=== PATIENT | female | born 1935 | race Caucasian/White ===

== ENCOUNTER 2023-02-03 13:40 | Emergency (ER) | payer MEDICARE, SELFPAY ==
[2023-02-03 13:44] VITALS: BP 147/91; PULSE 121; RESP 16; TEMP 37.3; O2SAT 94; BMI 23.2
--- NOTE | 2023-02-03 14:05 | ED.GENADULT ---
HPI - General Adult General Chief complaint: Cough Stated complaint: Congestion, cough Time Seen by Provider: 02/03/23 14:03 History of Present Illness HPI narrative: Pt c/o cough, congestion, and burning in throat that started four days ago. Pt states similar episode in 1987 . Recently around son who was sick and put on antibiotics. Pt states she has a clip on her heart and afib, so I'm here because I need the antibiotic augmentin. Pt states she recently got RSV vaccine 87-year-old woman presenting to emergency department complaint of cough. She mentions sinus problems but does not have any facial pain currently. No fever. No ear pain. Not really with sore throat. No rash. Not short of breath outside of coughing. Has not tried any treatment. Apparently was screened 2 days ago negative for COVID. She is clearly disinterested in being checked again. Was initially described as Augmentin it sounds like is actually amoxicillin. She says she is around a son who was sick with what sounds like head cold symptoms as she describes it and started on antibiotics; I'm understanding that this was amoxicillin. She describes history of cough like this before and says she needs this antibiotic to get over it. Unprompted proceeds to talk about how she does not think that antibiotic resistance is related to antibiotic prescriptions; insignificant to the affect of climate change in this regard she says. She alludes to numerous studies. I ask for more clarity and direction to them and she becomes angry. Becomes further angry as I tried to explain my thoughts on the matter. 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 Anticoagulated with Coumadin and lists a number of allergies. Related Data Home Medications Medication Instructions Recorded Confirmed ketoconazole 2 % topical cream 1 applic topical .Daily as needed 10/06/21 02/03/23 PRN multivitamin (Multiple Vitamins 1 tab PO QAM 10/06/21 02/03/23 tablet) metoprolol succinate 200 mg 50 mg PO BID 06/28/22 02/03/23 tablet,extended release 24 hr Previous Rx's Medication Instructions Recorded conjugated estrogens 0.625 mg/gram 0.3125 mg vaginal 2XW #30 grams 12/06/21 vaginal cream furosemide 20 mg tablet 40 mg (2 x 20 mg) PO DAILY #180 06/24/22 tabs ammonium lactate 12 % topical cream 1 applic topical QDAY Acne #1,155 08/31/22 grams warfarin 1 mg tablet 4 mg PO DAILY Atrial fibrillation 08/31/22 #90 tabs losartan 100 mg tablet 100 mg PO DAILY Hypertension #90 01/09/23 tabs tretinoin 0.025 % topical cream 1 applic topical .Bedtime Acne #45 02/01/23 grams guaifenesin 600 mg tablet, 600 mg PO BID #30 tabs 02/02/23 extended release 12 hr amoxicillin 875 mg tablet 875 mg PO BID 7 days #14 tabs 02/03/23 Allergies Allergy/AdvReac Type Severity Reaction Status Date / Time cephalexin Allergy Intermediate Hives/rash Verified 02/03/23 13:55 nitrofurantoin Allergy Mild Unknown Verified 02/03/23 13:55 Sulfa (Sulfonamide Allergy Mild Rash Verified 02/03/23 13:55 Antibiotics) spironolactone Allergy Unknown Rash, Verified 02/03/23 13:55 blisters amlodipine AdvReac Mild Leg Verified 02/03/23 13:55 swelling clonidine AdvReac Mild Unknown Verified 02/03/23 13:55 hydrochlorothiazide AdvReac Mild Unknown Verified 02/03/23 13:55 lisinopril AdvReac Mild Hugo Verified 02/03/23 13:55 inhibitor cough Triamterene AdvReac Mild Unknown Uncoded 02/02/23 13:52 Review of Systems Status of ROS: Reports: 6 or more systems reviewed and unremarkable except as noted in History and below [facility] Medical History Post-menopausal bleeding ?N95.0 - Postmenopausal bleeding (ICD-10) History of squamous cell carcinoma of skin (2016) ?Z85.828 - Personal history of other malignant neoplasm of skin (ICD-10) Surgical History Status post eye surgery (~2020) ?Z98.890 - Other specified postprocedural states (ICD-10) H/O cardiac radiofrequency ablation ?Z98.890 - Other specified postprocedural states (ICD-10) Status post laser ablation of incompetent vein (~2016) ?Z98.890 - Other specified postprocedural states (ICD-10) History of tricuspid valve repair (2019) ?Z98.890 - Other specified postprocedural states (ICD-10) History of tonsillectomy (1953) ?Z90.89 - Acquired absence of other organs (ICD-10) Family History Father Brain tumor 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 Sounds mildly congested nasopharynx. Breathing easily. Rare small cough. Oropharynx is moist non erythematous. Trace cobblestoning or irritation in the posterior oropharynx. Neck is supple without lymphadenopathy. No facial swelling erythema tenderness. TMs are clear. Lungs are clear. Heart with trace systolic murmur. Skin is warm and dry. Const: Vital Signs, click to edit/add: Vital Signs - 24 hr 02/03/23 13:44 Temperature 99.2 F Pulse Rate [Pulse Oximeter] 121 H Respiratory Rate 16 Blood Pressure [Le ft Upper Arm] 147/91 H Pulse Oximetry 94 Oxygen Delivery Me thod Room Air Documenting provider has reviewed patient's vital signs: yes Course Vital Signs Vital signs: Initial Vital Signs Temperature 99.2 F 02/03/23 13:44 Temperature Source Temporal Artery Scan 02/03/23 13:44 Pulse Rate 121 H 02/03/23 13:44 Respiratory Rate 16 02/03/23 13:44 Blood Pressure 147/91 H 02/03/23 13:44 Blood Pressure Mean 109 H 02/03/23 13:44 Blood Pressure Position Sitting 02/03/23 13:44 Pulse Oximetry 94 02/03/23 13:44 Oxygen Delivery Method Room Air 02/03/23 13:44 Vital Signs Temperature 99.2 F 02/03/23 13:44 Pulse Rate 121 H 02/03/23 13:44 Respiratory Rate 16 02/03/23 13:44 Blood Pressure 147/91 H 02/03/23 13:44 Pulse Oximetry 94 02/03/23 13:44 Oxygen Delivery Method Room Air 02/03/23 13:44 Temperature 99.2 F 02/03/23 13:44 Pulse Rate 121 H 02/03/23 13:44 Respiratory Rate 16 02/03/23 13:44 Blood Pressure 147/91 H 02/03/23 13:44 Pulse Oximetry 94 02/03/23 13:44 Oxygen Delivery Method Room Air 02/03/23 13:44 Medical Decision Making MDM Narrative Medical decision making narrative: See above. After calming does allow for physical exam. Appears to have a head cold and likely some postnasal drip causing cough. She agrees that unlikely to have a pneumonia at this time. Demands again whether not she will be receiving her antibiotics. It appears I am unable to discuss this matter further. Pseudoephedrine might be less indicated given history of atrial fibrillation. I do encourage some [id number] remedies prior to initiating antibiotics; encouraging her to wait with starting these. Clearly no sinus infection so would prescribe a shorter course. See patient discharge plan Medical Records Medical records reviewed: Yes I reviewed the patient's medical records Discharge Plan Discharge Clinical Impression: Head cold, URI (upper respiratory infection) Patient Disposition: Home, Self-Care Condition: Stable Instructions: Cold Symptoms (ED) Additional Instructions: Stay well-hydrated. Consider sleeping under the mist of a cool mist humidifier. Menthol vapors might be helpful. If you tolerate decongestants, pseudoephedrine could be quite helpful. Concern though is that it could raise your heart rate. Could try a mucolytic like guaifenesin. If not improving in 2-3 days, then amoxicillin could be the way to go. Activity Level: No Restrictions Discharge Diet: Regular Prescriptions: New amoxicillin 875 mg tablet 875 mg PO BID 7 Days Qty: 14 0RF No Action guaifenesin 600 mg tablet extended release 12hr 600 mg PO BID Qty: 30 0RF ketoconazole 2 % cream 1 applic topical .Daily as needed PRN multivitamin [Multiple Vitamins] Tablet 1 tab PO QAM metoprolol succinate 200 mg tablet extended release 24 hr 50 mg PO BID conjugated estrogens 0.625 mg/gram cream 0.3125 mg vaginal 2XW Qty: 30 2RF furosemide 20 mg tablet 40 mg PO DAILY Qty: 180 0RF ammonium lactate 12 % cream 1 applic topical QDAY Qty: 1155 2RF warfarin 1 mg tablet 4 mg PO DAILY Qty: 90 3RF Protocol: Dose Management Condition: Monday Dose/Route: 3.5 mg Instruction: 3.5 x 1 mg tablets Condition: Monday Dose/Route: 3.5 mg Instruction: 3.5 x 1 mg tablets Condition: Monday Dose/Route: 3.5 mg Instruction: 3.5 x 1 mg tablets Condition: Monday Dose/Route: 3.5 mg Instruction: 3.5 x 1 mg tablets Condition: Dose/Route: 3.5 mg Instruction: 3.5 x 1 mg tablets Condition: Monday Dose/Route: 3.5 mg Instruction: 3.5 x 1 mg tablets Condition: Monday Dose/Route: 3.5 mg Instruction: 3.5 x 1 mg tablets Protocol Text: Adjustment Start Date: Monday12/20/22 INR Value: 2.5 INR Date: 12/20/22 Recheck Date: 02/18/23 Rx Instructions: Neil 4 MG, M 4 MG, Tu 4 MG, W 4 MG, Th 4 MG, F 4 MG, Sa 4 MG losartan 100 mg tablet 100 mg PO DAILY Qty: 90 3RF tretinoin 0.025 % cream 1 applic topical .Bedtime Qty: 45 3RF Follow Up/Referrals: Sandip Monteiro MD [Primary Care Provider] - Stand Alone Forms: [employer] Info Instructions
== END 2023-02-03 14:53 | disposition home or self-care (01) ==
PROVIDERS: Emergency Provider Family Medicine; PCP Internal Medicine
DX: J06.9 Acute upper respiratory infection, unspecified (principal)
CPT/HCPCS: 99283; 99284

== ENCOUNTER 2023-08-07 09:14 | Outpatient (CLI) | payer MEDICARE, SELFPAY ==
--- OUTSIDE RECORDS SUMMARY | 2023-08-09 07:23 | XMS_ITS ---
Author Name Unknown Organization [facility] Address [address] [place] [address] Care Team Providers Care Braid Cutter Name Role Phone Wong Marrero M.D., Ph.D. 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 Past Plans Radiation Treatments * No radiation treatments are documented for this patient in [facility]. Treatments may have been administered in another system. Resolved Problems Problem Noted Date Diagnosed Date Resolved Date Imbalance Non Orthopedic 07/26/2022 Cataract Senile Nuclear Sclerosis Bilateral 12/02/2020 03/23/2021 Overview: Added automatically from request for surgery [id number] Cataract Senile Cortical Right 12/02/2020 02/05/2021 Overview: Added automatically from request for surgery [id number] Cataract Senile Cortical Left 12/02/2020 03/23/2021 Overview: Added automatically from request for surgery [id number] Encounter For Removal Of Sutures 01/15/2020 03/13/2020 Lesion Skin 12/24/2019 01/15/2020 Anemia Iron Deficiency 09/13/201802/21 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
--- OUTSIDE RECORDS SUMMARY | 2023-08-09 07:23 | XMS_ITS | Referral Summary ---
Author Name Unknown Organization [facility] Address [address] [place] [id number] Care Team Providers Care Lug Loader Name Role Phone Wong Marrero M.D., Ph.D. Primary Care Provider Source Comments Patient records contain information from all sites at [facility]. For routine questions regarding patient records, call [phone] during business hours, M-F 8:00 AM - 5:00 PM Central Time. Record requests for emergency care only can be directed to [phone] Encounters Date Type Department Care Team Description 07/04/2023 Clinical Communication Department of Orthopedic Surgery in [address] [phone] Barry Baeza M.D. Surgical Listing (ORTHO ) 07/04/2023 Clinical Communication Department of Orthopedic Surgery in [address] [phone] Barry Baeza M.D. Surgical Listing 07/04/2023 1:13 PM CDT - 07/04/2023 11:59 PM CDT Hospital Encounter Department of Radiology in [address] [phone] Barry Baeza M.D. Pain Finger Left Discharge Disposition: Home or Self Care 07/04/2023 1:30 PM CDT Comprehensive Visit Department of Orthopedic Surgery in [address] [phone] Barry Baeza M.D. Pain Finger Left (Primary Dx) Discharge Disposition: Home or Self Care 06/06/2023 Orders Only [facility] PCP TH MNT Wong Marrero M.D., Ph.D. 05/22/2023 4:00 PM BENDING PRESS OPERATOR Office Visit Department of Family Medicine, [facility], in [address] [phone] Wong Marrero M.D., Ph.D. Pain Hip Left (Primary Dx) Discharge Disposition: Home or Self Care from Last 3 Months Allergies Active Allergy Reactions Criticality Noted Date Comments Cephalexin Rash,Other (see comments) Low 04/08/2015 hives Spironolactone Rash High 10/15/2018 Sulfa (Sulfonamide Antibiotics) Hives (Reselect Reaction) Low 04/08/2015 rash Medications Medication Sig Dispensed Refills Start Date End Date Status losartan (COZAAR) 100 mg tablet Take 100 mg by mouth daily. 08/19/2017 Active ammonium lactate (AMLACTIN) 12 % cream as needed. 08/07/2017 Active acetaminophen (TYLENOL) 500 mg tablet Take 1,000 mg by mouth as needed. Active tretinoin (RETIN-A) 0.025 % cream as needed. 09/24/2019 Active amoxicillin (AMOXIL) 500 mg capsule Take 4 caps (2000 mg) 1 hour prior to procedure. 12 capsule 3 03/03/2020 Active Additional Information Patient taking differently: As needed, Take 4 caps (2000 mg) 1 hour prior to procedure., Reported on 05/07/2021 metoprolol succinate (TOPROL-XL) 50 mg 24 hr tablet Take 2 tablets (100 mg total) by mouth 2 (two) times a day. Do not crush or chew. 360 tablet 11 02/21/2022 Active Additional Information Patient taking differently: 50 mgoral 2 times daily, Do not crush or chew., Reported on 08/18/2022 furosemide (LASIX) 20 mg tabletIndications:A trial Fibrillation Unspecified (HCC) Take 2 tablets (40 mg total) by mouth daily. Patient takes one dose of 40mg/day 180 tablet 3 07/26/2022 Active ketoconazole (NIZORAL) 2 % cream Apply to rash under breasts twice daily for 3-4 weeks 30 g 1 09/01/2022 Active multivitamin tablet Take 1 tablet by mouth. 10/06/2021 Active apixaban (ELIQUIS) 5 mg tablet Take 1 tablet (5 mg total) by mouth 2 (two) times a day. 180 tablet 3 04/12/2023 04/11/2024 Active metoprolol succinate (TOPROL-XL) 50 mg 24 hr tablet Take 50 mg by mouth daily. Do not crush or chew. Patient taking two 50 mg tablets q noon. 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 White Kid Buffer (Current) Anticoagulant Treatment 07/03 Atrial Fibrillation 07/23/2018 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 Resolved Problems Problem Noted Date Diagnosed Date Resolved Date Imbalance Non Orthopedic 07/26/2022 Cataract Senile Nuclear Sclerosis Bilateral 12/02/2020 03/23/2021 Overview: Added automatically from request for surgery [id number] Cataract Senile Cortical Right 12/02/2020 02/05/2021 Overview: Added automatically from request for surgery [id number] Cataract Senile Cortical Left 12/02/2020 03/23/2021 Overview: Added automatically from request for surgery [id number] Encounter For Removal Of Sutures 01/15/2020 03/13/2020 Lesion Skin 12/24/2019 01/15/2020 Anemia Iron Deficiency 09/13/201802/21 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 Immunizations Name Administration Dates Next Due HZV (ZOSTAVAX) 09/15/2006 Influenza TIV (IM) 11/28/2018 Influenza high dose QV(65 ye ars or older) (PF) 12/16/2021,12/09/2020,11/22/2019 Influenza, Unspecified 12/21/2015 PCV13 08/21/2014 PPSV23 12/12/2019,09/15/2000 RZV (SHINGRIX) 12/18/2018,10/17/2018 SARS-COV-2 (COVID-19) - MODERNA(Discontinued) 05/17/2021,05/28/2020,04/30/2020 Tdap 09/21/2015 influenza high dose (65 year s or older) (PF) 12/10/2018,12/13/2017,12/17/2016,2015 influenza vaccine quad (FLUZONE/FLUARIX) (6 months and older)(PF) 12/02/2018 Social History Tobacco Use Types Packs/Day Years Used Date Smoking Tobacco: Never Smokeless Tobacco: Never Tobacco Cessation:Counseling Given: Not Answered Alcohol Use Standard Drinks/Week Comments Never 0 (1 standard drink = 0.6 oz pur e alcohol) Humiliation, Afraid, Rape, and Kick questionnair e Answer Date Recorded Within the last year, have y ou been afraid of your partner or ex-partner? Patient declined 07/26/2022 Within the last year, have y ou been humiliated or emotionally abused in other ways by your partner or ex-partner? Patient declined 07/26/2022 Within the last year, have y ou been kicked, hit, slapped, or otherwise physically hurt by your partner or ex-partner? Patient declined 07/26/2022 Within the last year, have y ou been raped or forced to have any kind of sexual activity by your partner or ex-partner? Patient declined 07/26/2022 Social Connection and Isolat ion Panel [NHANES] Answer Date Recorded In a typical week, how many times do you talk on the phone with family, friends, or neighbors? More than three times a week 07/26/2022 How often do you get togethe r with friends or relatives? More than three times a week 07/26/2022 How often do you attend chur ch or orthodoxy services? Never 07/26/2022 Do you belong to any clubs o r organizations such as mosque groups, unions, fraternal or athletic groups, or school groups? No 07/26/2022 How often do you attend meet ings of the clubs or organizations you belong to? Never 07/26/2022 Are you , , di vorced, , never , or living with a partner? 07/26/2022 AUDIT-C Answer Date Recorded Q1: How often do you have a drink containing alc ohol? Monthly or less 07/26/2022 Q2: How many drinks containi ng alcohol do you have on a typical day when you are drinking? 1 or 2 07/26/2022 Q3: How often do you have si x or more drinks on one occasion? Never 07/26/2022 Overall Financial Resource Strain (CARDIA) Answe r Date Recorded How hard is it for you to pa y for the very basics like food, housing, medical care, and heating? Not hard at all 07/26/2022 PHQ-2 Answer Date Recorded PHQ-2 Score 0 05/22/2023 [facility] - Occupational Stress Questionnaire Answer Date Recorded Do you feel stress - tense, restless, nervous, or anxious, or unable to sleep at night because your mind is troubled all the time - these days? Not at all 07/26/2022 Exercise Vital Sign Answer Date Recorde d On average, how many days pe r week do you engage in moderate to strenuous exercise (like a brisk walk)? 7 days 07/26/2022 On average, how many minutes do you engage in exercise at this level? 60 min 07/26/2022 Hunger Vital Sign Answer Date Recorded Within the past 12 months, y ou worried that your food would run out before you got the money to buy more. Patient declined Within the past 12 months, t he food you bought just didn't last and you didn't have money to get more. Patient declined PRAPARE - Transportation Answer Date Re corded In the past 12 months, has l ack of transportation kept you from medical appointments or from getting medications? No 07/03 In the past 12 months, has l ack of transportation kept you from meetings, work, or from getting things needed for daily living? No 07/26/2022 Housing Stability Vital Sign Answer Gus e Recorded In the last 12 months, was t here a time when you were not able to pay the mortgage or rent on time? No 07/26/2022 In the last 12 months, how many places have you lived? 1 07/26/2022 In the last 12 months, was t here a time when you did not have a steady place to sleep or slept in a assisted (including now)? No 07/26/2022 Depression Answer Date Recor ded PHQ-9 Total Score (max 27) 0 04/28 Nutrition Answer Date Recorded Nutrition: EVOO Fat Source Yes 07/26 On average, how many serving s of fruits and vegetables do you eat per day (serving size is equal to 1 cup or approximately the size of a tennis ball)? 4-5 07/26/2022 Dental Answer Date Recorded Dental: Regular Dentist Unknown 11/12/19 Employment Answer Date Recorded Employment status Retired 07/26/2022 Education Answer Date Recorded What is the highest level of school you have completed or the highest degree you have received? 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, [employer]) 11/05/2019 Sex and Gender Information Value Date Recorded Sex Assigned at Not on file Gender Identity Not on file Sexual Orientation Not on file Last Filed Vital Signs Vital Sign Reading Time Taken Comments Blood Pressure 131/84 05/22/2023 3:21 PM BENDING PRESS OPERATOR Pulse 96 05/22/2023 3:21 PM BENDING PRESS OPERATOR Temperature 36.8 ??C (98.2 ??F) 05/10/2023 2:59 PM CS T Respiratory Rate 18 05/10/2023 3:43 PM BENDING PRESS OPERATOR Oxygen Saturation 99% 05/10/2023 3:43 PM BENDING PRESS OPERATOR Inhaled Oxygen Concentration - - Weight 60 kg (132 lb 4.4 oz) 05/22/2023 3:21 PM BENDING PRESS OPERATOR Height 162.6 cm (5' 4.02) 07/26/2022 1:34 PM CD T Body Mass Index 22.69 07/26/2022 1:34 PM CDT Plan of Treatment Upcoming Encounters Date Type Department Care Team (Latest Contact Info) Description 08/14/2023 3:00 PM CDT Comprehensive Visit Department of Ophthalmology in [address] [phone] Rahul Rivera Jr., M.D. [address] [phone] Discharge Disposition: Home or Self Care 09/25/2023 1:00 PM CDT Appointment Department of Laboratory Medicine in [address] [phone] Angelika Wilkinson M.D. [address] [place] [phone] 09/26/2023 2:20 PM CDT Office Visit Department of Oncology in [address] [phone] Angelika Wilkinson M.D. [address] [place] [phone] Scheduled Procedures Name Priority Associated Diagnoses Date/Ti me ARTHROPLASTY PROXIMAL INTERPHALANGEAL JOINT Pain Finger Left Medical Devices Implanted Type Area Corporate Financial Analyst Device Identifier Shelf Expiration Date Model / Serial / Lot Research Renu [id number] Lg Transcatheter Vrs Irb# [id number] - [id number] Implanted:Qty: 1 on 03/03/2020 by Valerie Navarro M.D. at [facility] Cardiac Valve Prosthesis N/A: Heart Thomas [id number] 10/20/2020 [id number] / / [id number] Description:Tricuspid Valve Lens Tcn [id number] Bicnvx +21.0d - [id number] - [id number] Implanted:Qty: 1 on 02/03/2021 by Galindo Burk M.D. at [facility] Ocular Lens Right: Eye [employer] (Previously ASHWIN) [id number] 10/18/2023 [id number] / Lens Tcn [id number] Bicnvx +21.5d - [id number] - [id number] Implanted:Qty: 1 on 03/22/2021 by Galindo Burk M.D. at [facility] Ocular Lens Left: Eye [employer] (Previously [employer]SHWIN) [id number] 12/13/2024 [id number] / Procedures Procedure Name Priority Date/Time Associated Diagnosis Comments DX FINGERS LEFT 2+ VIEWS RAD - Routine (most inpatients and all outpatients) 07/04/2023 1:21 PM CDT Pain Finger Left SODIUM, S/P Routine 03/09/2023 9:15 AM BENDING PRESS OPERATOR Regurgitation Tricuspid Nonrheumatic POTASSIUM, S/P Routine 03/09/2023 9:15 AM BENDING PRESS OPERATOR Regurgitation Tricuspid Nonrheumatic CREATININE WITH EGFR, S/P Routine 03/09/2023 9:15 AM BENDING PRESS OPERATOR Regurgitation Tricuspid Nonrheumatic from Last 3 Months or Most Recently Relevant to Health Maintenance Results * DX Fingers Left 2+ Views (07/04/2023 1:21 PM CDT) Anatomical Region Laterality Modality Upper Extremity, Fingers, Mu sculoskeletal RST LOS, Musculoskeletal ARZ LOS, Muskuloskeletal FLA LOS Left Digit al Radiography Impressions 07/04/2023 1:35 PM CDT No third finger fracture. 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 Severe arthropathy of the third PIP joint with severe joint space narrowing, productive change, marginal erosions and subchondral cysts. Findings suggest inflammatory arthropathy, not excluding gout. Severe arthropathy of the third DIP joint with joint space narrowing and productive change, including prominent dorsal osteophyte, which may represent degenerative or erosive arthropathies. Otherwise, scattered polyarticular degenerative change. Bone demineralization. Narrative 07/04/2023 1:35 PM CDT EXAM: DX FINGERS LEFT 2+ VIEWS Procedure Note Mehrdad Mobley M.D. - 07/04/2023 EXAM: DX FINGERS LEFT 2+ VIEWS IMPRESSION: No third finger fracture. 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 Severearthropathy of the third PIP joint with severe joint space narrowing,productive change, marginal erosions and subchondral cysts. Findingssuggest inflammatory arthropathy, not excluding gout. Severe arthropathy of the third DIP joint with joint spacenarrowing and productive change, including prominent dorsal osteophyte,which may represent degenerative or erosive arthropathies. Otherwise,scattered polyarticular degenerative change. Bone demineralization. Barry Baeza M.D. IMG DIAGNOSTIC NEIL GING PROCEDURES * Sodium (03/09/2023 9:15 AM BENDING PRESS OPERATOR) Sodium, S 144 135 - 145 mmol/L 03/09/2023 10:24 AM BENDING PRESS OPERATOR DTL Blood (Blood, Venous) 03/09/2023 9:15 AM BENDING PRESS OPERATOR 03/09/2023 9:57 AM BENDING PRESS OPERATOR Valerie Navarro M.D. LAB BLOOD ADD-ON [facility] [address] [place] [address], [facility] [address] [place] [address] * Potassium (03/09/2023 9:15 AM BENDING PRESS OPERATOR) Potassium, S 4.2 3.6 - 5.2 mmol/L 03/09/2023 10:24 AM BENDING PRESS OPERATOR DTL Blood (Blood, Venous) 03/09/2023 9:15 AM BENDING PRESS OPERATOR 03/09/2023 9:57 AM BENDING PRESS OPERATOR Valerie Navarro M.D. LAB BLOOD ADD-ON Performing Organization Address City/[facility]/ZIP Co de Phone Number [facility] [address] [place] [address], [facility] [address] [place] [address] * Creatinine with Estimated GFR (03/09/2023 9:15 AM BENDING PRESS OPERATOR) Creatinine 0.80 0.59 - 1.04 mg/dL 03/09/2023 10:24 AM BENDING PRESS OPERATOR DTL Estimated GFR (eGFR) 71 >=60 mL/min/BSA 03/09/2023 10:24 AM BENDING PRESS OPERATOR DTL Comment: Estimated GFR calculated using the 2020 CKD_EPI creatinine equation. Blood (Blood, Venous) 03/09/2023 9:15 AM BENDING PRESS OPERATOR 03/09/2023 9:57 AM BENDING PRESS OPERATOR Valerie Navarro M.D. LAB BLOOD ADD-ON Performing Organization Address [facility] Co de Phone Number [facility] [address] [place] [address], [facility] [address] [place] [address] from Last 3 Months or Most Recently Relevant to Health Maintenance Advance Directives For more information, please contact: [phone] * Full Code (Latest Code Status on File) Date Activated Date Inactivated Comments 03/03/2020 10:39 AM 03/04/2020 1:47 PM Question Answer Comments Full Code: Discussed Care Teams Lug Loader Relationship Specialty Start Date End Date Wong Marrero M.D., Ph.D. [address] [place] [phone] PCP - General Family Medicine 04/09/19
--- OUTSIDE RECORDS SUMMARY | 2023-08-09 07:23 | XMS_ITS | Clinical Summary ---
Author Name Unknown Organization [facility] Address [address] [place] [address] Care Team Providers Care Steel Fixer Name Role Phone Wong Marrero M.D., Ph.D. Primary Care Provider Source Comments Patient records contain information from all sites at [facility]. For routine questions regarding patient records, call [phone] during business hours, M-F 8:00 AM - 5:00 PM Central Time. 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 Revenue Liaison (Current) Anticoagulant Treatment 07/03 Atrial Fibrillation 07/23/2018 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 Resolved Problems Problem Noted Date Diagnosed Date Resolved Date Imbalance Non Orthopedic 07/26/2022 Cataract Senile Nuclear Sclerosis Bilateral 12/02/2020 03/23/2021 Overview: Added automatically from request for surgery [id number] Cataract Senile Cortical Right 12/02/2020 02/05/2021 Overview: Added automatically from request for surgery [id number] Cataract Senile Cortical Left 12/02/2020 03/23/2021 Overview: Added automatically from request for surgery [id number] Encounter For Removal Of Sutures 01/15/2020 03/13/2020 Lesion Skin 12/24/2019 01/15/2020 Anemia Iron Deficiency 09/13/201802/21 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 Pain Finger Left (Primary Dx) Discharge Disposition: Home or Self Care 07/04/2023 1:13 PM CDT - 07/04/2023 11:59 PM CDT Hospital Encounter Department of Radiology in [address] [phone] Barry Baeza M.D. Pain Finger Left Discharge Disposition: Home or Self Care 07/04/2023 Clinical Communication Department of Orthopedic Surgery in [address] [phone] Barry Baeza M.D. Surgical Listing (ORTHO ) 07/04/2023 Clinical Communication Department of Orthopedic Surgery in [address] [phone] Barry Baeza M.D. Surgical Listing 06/06/2023 Orders Only [facility] Wong Mason M.D., Ph.D. 05/22/2023 4:00 PM CERTIFIED TRAVEL COUNSELOR Office Visit Department of Family Medicine, [facility], in [address] [phone] Wong Marrero M.D., Ph.D. Pain Hip Left (Primary Dx) Discharge Disposition: Home or Self Care from Last 3 Months Immunizations Name Administration Dates Next Due HZV (ZOSTAVAX) 09/15/2006 Influenza TIV (IM) 11/28/2018 Influenza high dose QV(65 ye ars or older) (PF) 12/16/2021,12/09/2020,11/22/2019 Influenza, Unspecified 12/21/2015 PCV13 08/21/2014 PPSV23 12/12/2019,09/15/2000 RZV (SHINGRIX) 12/18/2018,10/17/2018 SARS-COV-2 (COVID-19) - MODERNA(Discontinued) 05/17/2021,05/28/2020,04/30/2020 Tdap 09/21/2015 influenza high dose (65 year s or older) (PF) 12/10/2018,12/13/2017,12/17/2016,2015 influenza vaccine quad (FLUZONE/FLUARIX) (6 months and older)(PF) 12/02/2018 Family History Medical History Relation Name Comments Cataracts Maternal Grandmother Cataracts Mother Macular degeneration Mother Cataracts Sister Amblyopia Neg Hx Anesthesia problems Neg Hx Blindness Neg Hx Diabetes Neg Hx Glaucoma Neg Hx Hypertension Neg Hx Retinal degeneration Neg Hx Retinal detachment Neg Hx Strabismus Neg Hx Vision loss Neg Hx Relation Name Status Comments Maternal Grandmother Mother Sister Social History Tobacco Use Types Packs/Day Years [...] often do you attend chur ch or protestant services? Never 07/26/2022 Do you belong to any clubs o r organizations such as muslim groups, unions, fraternal or athletic groups, or [...] Answer Date Recorded PHQ-2 Score 0 05/22/2023 [facility] [place] of Occupat ional Health - Occupational Stress Questionnaire Answer Date Recorded [...] place to sleep or slept in a fpc (including now)? No 07/26/2022 Depression Answer Date [...] Master's degree (e.g., MA, MS, Kimberly, MEd, ASSEMBLER PLASTIC BOAT, [employer]) 11/05/2019 Sex and Gender Information Value Date Recorded Sex Assigned at Not on file Gender Identity Not on file Sexual Orientation Not on file Last Filed Vital Signs Vital Sign Reading Time Taken Comments Blood Pressure 131/84 05/22/2023 3:21 PM CERTIFIED TRAVEL COUNSELOR Pulse 96 05/22/2023 3:21 PM CERTIFIED TRAVEL COUNSELOR Temperature 36.8 ??C (98.2 ??F) 05/10/2023 2:59 PM CS T Respiratory Rate 18 05/10/2023 3:43 PM CERTIFIED TRAVEL COUNSELOR Oxygen Saturation 99% 05/10/2023 3:43 PM CERTIFIED TRAVEL COUNSELOR Inhaled Oxygen Concentration - - Weight 60 kg (132 lb 4.4 oz) 05/22/2023 3:21 PM CERTIFIED TRAVEL COUNSELOR Height 162.6 cm (5' 4.02) 07/26/2022 1:34 PM CD T Body Mass Index 22.69 07/26/2022 1:34 PM CDT Plan of Treatment Upcoming Encounters Date Type Department Care Team (Latest Contact Info) Description 08/14/2023 3:00 PM CDT Comprehensive Visit Department of Ophthalmology in [address] [phone] Rahul Rivera Jr., M.D. [address] [phone] Discharge Disposition: Home or Self Care 09/25/2023 1:00 PM CDT Appointment Department of Laboratory Medicine in [address] [phone] Angelika Wilkinson M.D. [address] [place] [phone] 09/26/2023 2:20 PM CDT Office Visit Department of Oncology in [address] [phone] Angelika Wilkinson M.D. [address] [place] [phone] Scheduled Procedures Name Priority Associated Diagnoses Date/Ti me ARTHROPLASTY PROXIMAL INTERPHALANGEAL JOINT Pain Finger Left Health Maintenance Due Date Last Done Comments Visit: Medicare Annual Wellness 07/28/2023 07/26/2022 Creatinine Level (Kidney Function Test) 03/09/2024 03/09/2023, 07/26/2022, 05/07/2021, Additional history exists Potassium Level 03/09/2024 03/09/2023, 07/03, 05/07/2021, Additional history exists Sodium Level 03/09/2024 03/09/2023, 07/03, 05/07/2021, Additional history exists DTaP,Tdap,and Td Vaccines (2 - Td or Tdap) 09/20/2025 09/21/2015 Colonoscopy Discontinued 04/03/2011 (Perf ormed elsewhere) Colorectal Cancer Surveillance Discontinued Zoster Vaccines Completed 12/18/2018, 10/01, 09/15/2006 Pneumococcal vaccine (65+ years) Completed 12/12/2019, 08/21/2014, 09/15/2000 Visit: Chronic Disease, age 18+ Discontinued 07/26/2022 Influenza Vaccine Completed 12/02/2022, , 12/09/2020, Additional history exists Depression Screening (Annual PHQ-2) Completed 05/22/2023 Fall Risk Screen (Annual) Completed 05/22/2023 COVID-19 Vaccine Completed 06/10/2023, , 07/29/2022, Additional history exists CT Colonography Discontinued Cologuard Discontinued HPV Vaccines Aged Out No longer eligi ble based on patient's age to complete this topic Medical Devices Implanted Type Area Fixed Route Bus Operator Device Identifier Shelf Expiration Date Model / Serial / Lot Research Renu [id number] Lg Transcatheter Vrs Irb# [id number] - [id number] Implanted:Qty: 1 on 03/03/2020 by Valerie Navarro M.D. at [facility] Cardiac Valve Prosthesis N/A: Heart Thomas [id number] 10/20/2020 [id number] / / [id number] Description:Tricuspid Valve Lens Tcn [id number] Bicnvx +21.0d - [id number] - [id number] Implanted:Qty: 1 on 02/03/2021 by Galindo Burk M.D. at [facility] Ocular Lens Right: Eye [employer] (Previously ASHWIN) [id number] 10/18/2023 [id number] / Lens Tcn [id number] Bicnvx +21.5d - [id number] - [id number] Implanted:Qty: 1 on 03/22/2021 by Galindo Burk M.D. at [facility] Ocular Lens Left: Eye [employer] (Previously ASHWIN) [id number] 12/13/2024 [id number] / [id number] / Procedures Procedure Name Priority Date/Time Associated Diagnosis Comments DX FINGERS LEFT 2+ VIEWS RAD - Routine (most inpatients and all outpatients) 07/04/2023 1:21 PM CDT Pain Finger Left SODIUM, S/P Routine 03/09/2023 9:15 AM CERTIFIED TRAVEL COUNSELOR Regurgitation Tricuspid Nonrheumatic POTASSIUM, S/P Routine 03/09/2023 9:15 AM CERTIFIED TRAVEL COUNSELOR Regurgitation Tricuspid Nonrheumatic CREATININE WITH EGFR, S/P Routine 03/09/2023 9:15 AM CERTIFIED TRAVEL COUNSELOR Regurgitation Tricuspid Nonrheumatic from Last 3 Months [...] GING PROCEDURES * Sodium (03/09/2023 9:15 AM CERTIFIED TRAVEL COUNSELOR) Sodium, S 144 135 - 145 mmol/L 03/09/2023 10:24 AM CERTIFIED TRAVEL COUNSELOR DTL Blood (Blood, Venous) 03/09/2023 9:15 AM CERTIFIED TRAVEL COUNSELOR 03/09/2023 9:57 AM CERTIFIED TRAVEL COUNSELOR Valerie Navarro M.D. LAB BLOOD ADD-ON Performing Organization Address City/[facility]/ZIP Co de Phone Number [facility] [address] [facility] [address] [place] [address] * Potassium (03/09/2023 9:15 AM CERTIFIED TRAVEL COUNSELOR) Potassium, S 4.2 3.6 - 5.2 mmol/L 03/09/2023 10:24 AM CERTIFIED TRAVEL COUNSELOR DTL Blood (Blood, Venous) 03/09/2023 9:15 AM CERTIFIED TRAVEL COUNSELOR 03/09/2023 9:57 AM CERTIFIED TRAVEL COUNSELOR Valerie Navarro M.D. LAB BLOOD ADD-ON Performing Organization Address City/[facility]/ZIP Co de Phone Number [facility] [address] [place] [address], [facility] [address] [place] [address] * Creatinine with Estimated GFR (03/09/2023 9:15 AM CERTIFIED TRAVEL COUNSELOR) Creatinine 0.80 0.59 - 1.04 mg/dL 03/09/2023 10:24 AM CERTIFIED TRAVEL COUNSELOR DTL Estimated GFR (eGFR) 71 >=60 mL/min/BSA 03/09/2023 10:24 AM CERTIFIED TRAVEL COUNSELOR DTL Comment: Estimated GFR calculated using the 2020 CKD_EPI creatinine equation. Blood (Blood, Venous) 03/09/2023 9:15 AM CERTIFIED TRAVEL COUNSELOR 03/09/2023 9:57 AM CERTIFIED TRAVEL COUNSELOR Valerie Navarro M.D. LAB BLOOD ADD-ON [facility] [address] [place] [address], [place] [facility] [address] [place] [address] from Last 3 Months or Most Recently Relevant to Health Maintenance Advance Directives For more information, please contact: [phone] * Full Code (Latest Code Status on File) Date Activated Date Inactivated Comments 03/03/2020 10:39 AM 03/04/2020 1:47 PM Question Answer Comments Full Code: Discussed Care Teams Steel Fixer Relationship Specialty Start Date End Date Wong Marrero M.D., Ph.D. [address] [place] [phone] PCP - General Family Medicine 04/09/19
--- OUTSIDE RECORDS SUMMARY | 2023-08-09 07:23 | XMS_ITS | Encounter Summary ---
Author Name Unknown Organization [facility] Address [address] [place] [address] Care Team Providers Care Panel Lay Up Worker Name Role Phone Wong Marrero M.D., Ph.D. Primary Care Provider Reason for Visit * Reason Onset Date Comments Surgical Listing 07/04/2023 ORTHO Encounter Details Date Type Department Care Team (Latest Contact Info) Description 07/04/2023 Clinical Communication Department of Orthopedic Surgery in [place], [place] [address] [place] [phone] Barry Baeza M.D. [address] [place] [phone] Surgical Listing (ORTHO ) Social History Tobacco Use Types Packs/Day Years Used Date Smoking Tobacco: Never Smokeless Tobacco: Never Alcohol Use Standard Drinks/Week Comments Never 0 [...] often do you attend chur ch or sikhism services? Never 07/26/2022 Do you belong to any clubs o r organizations such as zoroastrianism groups, unions, fraternal or athletic groups, or [...] Answer Date Recorded PHQ-2 Score 0 05/22/2023 [facility] of Occupat ional Health - Occupational Stress [...] place to sleep or slept in a skilled nursing (including now)? No 07/26/2022 Depression Answer Date [...] Master's degree (e.g., MA, MS, Kimberly, MEd, MERCHANDISING STOCK ASSOCIATE, [employer]) 11/05/2019 Sex and Gender Information Value Date Recorded Sex Assigned at Not on file Gender Identity Not on file Sexual Orientation Not on file documented as of this encounter Miscellaneous Notes * Telephone Encounter - Anali Hna L.PLakeishaN. - 07/04/2023 1:52 PM CDT Scheduled L MIDDLE PIP JOINT ARTHROPLASTY on 07/25/23 to be performed by DR BAEZA. BMI Readings from Last 1 Encounters: 05/22/23 22.69 kg/m?? If BMI 55-60, contact Anesthesia as needs to schedule visit for evaluation. If BMI greater than 60,consult with provider. documented in this encounter Plan of Treatment Upcoming Encounters Date Type Department Care Team (Latest Contact Info) Description 08/14/2023 3:00 PM CDT Comprehensive Visit Department of Ophthalmology in [address] [phone] Rahul Rivera Jr., M.D. [address] [phone] Discharge Disposition: Home or Self Care 09/25/2023 1:00 PM CDT Appointment Department of Laboratory Medicine in [address] [phone] Angelika Wilkinson M.D. [address] [place] [phone] 09/26/2023 2:20 PM CDT Office Visit Department of Oncology in [address] [phone] Angelika Wilkinson M.D. [address] [place] [phone] Scheduled Procedures Name Priority Associated Diagnoses Date/Ti me ARTHROPLASTY PROXIMAL INTERPHALANGEAL JOINT Pain Finger Left documented as of this encounter Visit Diagnoses Not on filedocumented in this encounter Additional Health Concerns Assessment Noted Time PHQ-9 Depression Total Score: 0 04/28/19 21 2:20 PM BATTERY SERVICE TECHNICIAN documented as of this encounter Care Teams Panel Lay Up Worker Relationship Specialty Start Date End Date Wong Marrero M.D., Ph.D. [address] [place] [phone] PCP - General Family Medicine 04/09/19 documented as of this encounter
--- OUTSIDE RECORDS SUMMARY | 2023-08-09 07:23 | XMS_ITS | Clinical Summary ---
Author Name Unknown Organization [facility] Address [place], [place] [address] Care Team Providers Care Nursing Faculty Name Role Phone Elvie Wharton MD Primary Care Provider [phone] Social History Tobacco Use Types Packs/Day Years Used Date Smoking Tobacco: Never Assessed Sex and Gender Information Value Date Recorded Sex Assigned at Not on file Gender Identity Not on file Sexual Orientation Not on file Plan of Treatment Health Maintenance Due Date Last Done Comments Tdap 07/02/1946 Depression screening for age 12+ 1947 BMI (ht and wt on same day) for age 18+ 07/02/1953 Tetanus booster 1955 Zoster (shingles) series for age 50+ (1 of 2) 07/02/18 86 DEXA/DXA scan for age 65+ 07/02/2000 Pneumococcal series for age 65+ (1 of 1 - PCV) 001 COVID-19 vaccine series ( - 2022-24 season) 3 Influenza for age 65+ 12/03/2023 Care Teams Nursing Faculty Relationship Specialty Start Date End Date Elvie Wharton MD [address] [place] [address] PCP - General Internal Medicine 10/13/16
--- OUTSIDE RECORDS SUMMARY | 2023-08-09 07:23 | XMS_ITS ---
Author Name Unknown Organization [facility] Address [address] [place] [address] Care Team Providers Care Laboratory Veterinarian Name Role Phone Unavailable Unavailable Unavailable Surgery Details Not on file Complications Check Surgery Details section. Procedure Estimated Blood Loss Check Surgery Details section. Procedure Findings Check Surgery Details section. Procedure Specimens Taken Check Surgery Details section.
--- OUTSIDE RECORDS SUMMARY | 2023-08-09 07:24 | XMS_ITS | Encounter Summary ---
Author Name Unknown Organization [facility] Address [address] [place] [address] Care Team Providers Care Language Path Name Role Phone Wong Marrero M.D., Ph.D. Primary Care Provider Reason for Referral * Outpatient (Routine) - Authorized Specialty Diagnoses / Procedures Referred By Akanksha t Referred To Contact Family Medicine Wong Marrero M.D., Ph.D. [id number] [place] [phone] [facility] Referral ID Status Reason Start Date Expiration Date V isits Requested Visits Authorized [id number] Authorized 06/06/2023 12/05/2024 1 1 Scheduling Instructions Medicare annual provider visit/HCC gaps Do not schedule prior to due date to ensure insurance coverage Visit: Medicare Annual Wellness due on 07/28/2023. QUALITY CONTROL TECHNICIAN Encounter Details Date Type Department Care Team (Late st Contact Info) Description 06/06/2023 Orders Only [facility] Wong Marrero M.D., Ph.D. [address] [place] [phone] Social History Tobacco Use Types Packs/Day Years [...] 07/26/2022 How often do you attend chur or latter day services? Never 07/26/2022 Do you belong to any clubs o r organizations such as temple groups, unions, fraternal or athletic groups, or [...] Answer Date Recorded PHQ-2 Score 0 05/22/2023 [facility] [place] of Occupat ional Health - Occupational Stress [...] Master's degree (e.g., MA, MS, Kimberly, MEd, BOAT OUTBOARD ENGINE MECHANIC, [employer]) 11/05/2019 Sex and Gender Information Value Date Recorded Sex Assigned at Not on file Gender Identity Not on file Sexual Orientation Not on file documented as of this encounter Plan of Treatment Upcoming Encounters Date Type Department Care Team (Latest Contact Info) Description 08/14/2023 3:00 PM CDT Comprehensive Visit Department of Ophthalmology in [address] [phone] Rahul Rivera Jr., M.D. [address] [phone] Discharge Disposition: Home or Self Care 09/25/2023 1:00 PM CDT Appointment Department of Laboratory Medicine in [address] [phone] Angelika Wilkinson M.D. [address] [place] [phone] 09/26/2023 2:20 PM CDT Office Visit Department of Oncology in [address] [phone] Angelika Wilkinson M.D. [address] [place] [phone] Scheduled Procedures Name Priority Associated Diagnoses Date/Ti me ARTHROPLASTY PROXIMAL INTERPHALANGEAL JOINT Pain Finger Left Scheduled Referrals Name Type Priority Associated Diagnoses Orde r Schedule Family Medicine office visit (clinic) Outpatient Referral Routine Expected: 07/04/2023, Expires: 12/03/2023 documented as of this encounter Visit Diagnoses Not on filedocumented in this encounter Additional Health Concerns Assessment Noted Time PHQ-9 Depression Total Score: 0 04/28/19 21 2:20 PM LEAD QUALITY CONTROL TECHNICIAN documented as of this encounter Care Teams Language Path Relationship Specialty Start Date End Date Wong Marrero M.D., Ph.D. [address] [phone] PCP - General Family Medicine 04/09/19 documented as of this encounter
--- OUTSIDE RECORDS SUMMARY | 2023-08-09 07:24 | XMS_ITS | Encounter Summary ---
Author Name Unknown Organization [facility] Address [address] [place] [address] Care Team Providers Care Mine Supervisor Name Role Phone Wong Marrero M.D., Ph.D. Primary Care Provider Reason for Visit * Reason Comments Leg Pain 87 year old male adm its with concerns of left leg pain x 2 weeks. Encounter Details Date Type Department Care Team (Late st Contact Info) Description 05/10/2023 2:43 PM HAND SILVERING SUPERVISOR - 05/10/2023 3:44 PM HAND SILVERING SUPERVISOR [facility] [address] [place] [phone] Patricio Andrews APRN, C.N.P., M.S.N. [address] [place] [phone] Pain Hip Left (Primary Dx) Discharge Disposition: Home or Self Care Social History Tobacco Use Types Packs/Day Years [...] How often do you attend chur or taoist services? Never 07/26/2022 Do you belong to any clubs o r organizations such as yarsani groups, unions, fraternal or athletic groups, or [...] PHQ-2 Answer Date Recorded PHQ-2 Score 0 07/26/2022 [facility] [place] of Occupat ional Health - Occupational Stress [...] place to sleep or slept in a half-way (including now)? No 07/26/2022 Depression Answer Date [...] Master's degree (e.g., MA, MS, Kimberly, MEd, SEQUINS SLINGER, GRUPO) 11/05/2019 Sex and Gender Information Value Date Recorded Sex Assigned at Not on file Gender Identity Not on file Sexual Orientation Not on file documented as of this encounter Last Filed Vital Signs Vital Sign Reading Time Taken Comments Blood Pressure 140/80 05/10/2023 3:43 PM HAND SILVERING SUPERVISOR Pulse 98 05/10/2023 3:43 PM HAND SILVERING SUPERVISOR Temperature 36.8 ??C (98.2 ??F) 05/10/2023 2:59 PM CS T Respiratory Rate 18 05/10/2023 3:43 PM HAND SILVERING SUPERVISOR Oxygen Saturation 99% 05/10/2023 3:43 PM HAND SILVERING SUPERVISOR Inhaled Oxygen Concentration - - Weight 59.8 kg (131 lb 13.4 oz) 05/10/2023 3:00 PM HAND SILVERING SUPERVISOR Height - - Body Mass Index 22.62 07/26/2022 1:34 PM CDT documented in this encounter Discharge Instructions * Discharge Instructions* Patricio Andrews APRN C.N.P., M.S.N. - 05/10/2023 3:36 PM HAND SILVERING SUPERVISOR There is a possibility your pain could be due to sciatic nerve pain. In addition, it could be due to arthritis. For pain control: Tylenol 500 mg every 4 hours as needed. Over the counter lidocaine or salonpas every 12 hours as needed. My recommendation is follow up with the clinic next week for further evaluation if still concerned regarding the pain. If you are unable to walk, severe pain, sensation loss, or worsening symptoms, you can always return to the emergency department. SILVERING SUPERVISOR * Attachments The following attachments cannot be sent through Care Everywhere. * Hip Pain (Luxembourger) * Sciatica (Luxembourger) documented in this encounter Medications at Time of Discharge Medication Sig Dispensed Refills Start Date End Date acetaminophen (TYLENOL) 500 mg tablet Take 1,000 mg by mouth as needed. ammonium lactate (AMLACTIN) 12 % cream as needed. 08/07/2017 amoxicillin (AMOXIL) 500 mg capsule Take 4 caps (2000 mg) 1 hour prior to procedure. 12 capsule 3 03/03/2020 apixaban (ELIQUIS) 5 mg tablet Take 1 tablet (5 mg total) by mouth 2 (two) times a day. 180 tablet 3 04/12/2023 04/11/2024 furosemide (LASIX) 20 mg tabletIndications:Atria l Fibrillation Unspecified (HCC) Take 2 tablets (40 mg total) by mouth daily. Patient takes one dose of 40mg/day 180 tablet 3 07/26/2022 ketoconazole (NIZORAL) 2 % cream Apply to rash under breasts twice daily for 3-4 weeks 30 g 1 09/01/2022 losartan (COZAAR) 100 mg tablet Take 100 mg by mouth daily. 08/19/2017 multivitamin tablet Take 1 tablet by mouth. 10/06/2021 tretinoin (RETIN-A) 0.025 % cream as needed. 09/24/2019 peg 400-propylene glycol, PF, (SYSTANE) 0.4-0.3 % ophthalmic solution 1 drop 3 (three) times a day as needed for dry eyes. 05/22/2023 Premarin 0.625 mg/gram vaginal cream USE 0.313 MG VAGINALLY 2 TIMES A WEEK 12/03/2021 05/22/2023 documented as of this encounter ED Notes * Patricio Andrews, ALBERT, C.N.P., M.S.N. - 05/10/2023 3:05 PM CST SUBJECTIVE CHIEF COMPLAINT/REASON FOR VISIT Leg Pain (87 year old male admits with concerns of left leg pain x 2 weeks. ) HISTORY OF PRESENT ILLNESS History provided by: Patient REVIEW OF SYSTEMS Constitutional: Negative for chills and fever. HENT: Negative. Eyes: Negative. Respiratory: Negative. Cardiovascular: Negative. Gastrointestinal: Negative. Musculoskeletal: Positive for extremity pain. Psychiatric/Behavioral: Negative. OBJECTIVE Initial Vitals [05/10/23 1459] Temperature 36.8 ??C Pulse Rate 100 Heart Rate Resp Rate 18 Blood Pressure 151/82 SpO2 98 % Pain Score 10 - Worst possible pain PHYSICAL EXAMINATION Constitutional: She appears not lethargic. No distress. HENT: Head: Normocephalic. Nose: Nose normal. Eyes: Conjunctivae are normal. Pulmonary/Chest: Effort normal. Musculoskeletal: Left hip: Normal. Left upper leg: Normal. Neurological: Alert and oriented to person, place, and time. Skin: Skin is normal color. She is not diaphoretic. Psychiatric: She has a normal mood and affect. ASSESSMENT/PLAN Idalia Hoskins is a 87 y.o. female who presents to the ED concerning for left hip pain. Patient reports for the past 2 weeks she has been having issues where she started having sharp shooting painfrom her left hip down to her left foot. She states pain is worse when she lay on the left side. She denies any recent injury or trauma. Denies any fevers or chills. Differential diagnosis includes compartment syndrome, acute fracture, sprain, dislocation, vascularinjury, nerve injury, and others considered. On exam of the left lower extremity, there is no tenderness noted on palpation from the left hip down to the left foot. No tenderness on internal and external rotation. Negative straight leg test. Nopain noted when patient was squatting or bending. However as patient took a step, she felt a shooting pain from her left hip lateral side down to her left foot. I suspect likely her symptoms suggestive for possible sciatic pain. Given no significant pain on palpation less suspicion for acute fracture or dislocation. She denied exhibits any pain on palpation of the lumbar spine or left hip. There is no tenderness noted on palpation of the left femur to the left knee or left field. However, will obtain x-ray as screen, but also to confirm no fracture. X-rays negative for any acute fracture or dis location. Plan: I suspect symptoms could be due to sciatic pain versus arthritis. DC home with recommend she follow up with the the clinic. Advised on supportive management. Return precautions given. Assessment and Plan Care is significantly affected by the following Social Determinants of Health: None. ED Course as of 05/10/23 1536 Wed May 10, 2023 1532 DX Hip And Pelvis Left 2-3 Views X-ray reviewed. Do not suspect any acute fracture or dislocation. Interpreted by me. Final Diagnoses: as of 05/10/23 1536 Pain Hip Left Patricio Andrews APRN, C.N.P., M.S.N. 05/10/23 1536 SILVERING SUPERVISOR documented in this encounter Plan of Treatment Upcoming Encounters Date Type Department Care Team (Latest Contact Info) Description 08/14/2023 3:00 PM CDT Comprehensive Visit Department of Ophthalmology in [address] [phone] Rahul Rivera Jr., M.D. [address] [place] [address], [place] [phone] Discharge Disposition: Home or Self Care 09/25/2023 1:00 PM CDT Appointment Department of Laboratory Medicine in [address] [phone] Angelika Wilkinson M.D. [address] [place] [phone] 09/26/2023 2:20 PM CDT Office Visit Department of Oncology in [address] [phone] Angelika Wilkinson M.D. [address] [place] [phone] Scheduled Procedures Name Priority Associated Diagnoses Date/Ti me ARTHROPLASTY PROXIMAL INTERPHALANGEAL JOINT Pain Finger Left documented as of this encounter Procedures Procedure Name Priority Date/Time Associated Diagnosis Comments DX HIP AND PELVIS LEFT 2-3 VIEWS RAD - Semiurgent (Fast; most ED patients; some inpatients) 05/10/2023 3:31 PM HAND SILVERING SUPERVISOR documented in this encounter Results * DX Hip And Pelvis Left 2-3 Views (05/10/2023 3:31 PM HAND SILVERING SUPERVISOR) Anatomical Region Laterality Modality Lower Extremity, Pelvis, Hip , Musculoskeletal RST LOS, Musculoskeletal ARZ LOS, Muskuloskeletal FLA LOS Left Digit al Radiography Impressions 05/10/2023 3:35 PM HAND SILVERING SUPERVISOR No acute fracture seen. No joint dislocation. 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 Bilateral sacroiliac degenerative joint disease. Suspect osteopenia. Narrative 05/10/2023 3:35 PM HAND SILVERING SUPERVISOR EXAM: DX HIP AND PELVIS LEFT 2-3 VIEWS Procedure Note Oskar Pulido M.D. - 05/10/2023 EXAM: DX HIP AND PELVIS LEFT 2-3 VIEWS IMPRESSION: No acute fracture seen. No joint dislocation. Severe right and moderateleft hip degenerative joint disease with joint space loss, marginalosteophytes, subchondral sclerosis. Bilateral sacroiliac degenerativejoint disease. Suspect osteopenia. Patricio Andrews APRN, C.N.P., M.S.N. IMG DIAG NOSTIC IMAGING PROCEDURES documented in this encounter Visit Diagnoses Diagnosis Pain Hip Left- Primary documented in this encounter Additional Health Concerns Assessment Noted Time PHQ-9 Depression Total Score: 0 04/28/19 21 2:20 PM HAND SILVERING SUPERVISOR documented as of this encounter Care Teams Mine Supervisor Relationship Specialty Start Date End Date Wong Marrero M.D., Ph.D. [address] [place] [phone] PCP - General Family Medicine 04/09/19 documented as of this encounter
--- OUTSIDE RECORDS SUMMARY | 2023-08-09 07:24 | XMS_ITS | Encounter Summary ---
Author Name Unknown Organization [facility] Address [address] [place] [address] Care Team Providers Care Tire Repairman Name Role Phone Wong Marrero M.D., Ph.D. Primary Care Provider Reason for Referral * Outpatient (Routine) - Authorized Specialty Diagnoses / Procedures Referred By Contac t Referred To Contact Family Medicine Diagnoses Pain Finger Left Barry Baeza M.D. [address] [place] [phone] [facility] Region Referral ID Status Reason Start Date Expiration Date V isits Requested Visits Authorized [id number] Authorized 07/04/2023 01/02/2025 1 1 * Outpatient (Routine) - Authorized Specialty Diagnoses / Procedures Referred By Contkash t Referred To Contact Anesthesiology Diagnoses Pain Finger Left Barry Baeza M.D. [address] [place] [phone] [facility] Region Referral ID Status Reason Start Date Expiration Date V isits Requested Visits Authorized [id number] Authorized 07/04/2023 01/02/2025 1 1 * Outpatient (Routine) - Authorized Specialty Diagnoses / Procedures Referred By Contac t Referred To Contact Orthopedic Surgery Barry Baeza M.D. [address] [place] [phone] [facility] Region Referral ID Status Reason Start Date Expiration Date V isits Requested Visits Authorized [id number] Authorized 07/04/2023 01/02/2025 1 1 * Outpatient (Routine) - Closed Specialty Diagnoses / Procedures Referred By Contac t Referred To Contact Diagnoses Pain Finger Left Procedures DX Fingers Left 2+ Views Barry Baeza M.D. [address] [place] [phone] [facility] Region Referral ID Status Reason Start Date Expiration Date Visits Re quested Visits Authorized [id number] Closed 07/04/2023 2024 1 1 Reason for Visit * Reason Comments Pain Pain * Appointment Request (Routine) - Closed Specialty Diagnoses / Procedures Referred By Contac t Referred To Contact Orthopedic Surgery Diagnoses Pain Leg Left Referral ID Status Reason Start Date Expiration Date Visits Re quested Visits Authorized [id number] Closed 05/10/2023 05/09/2024 1 1 Encounter Details Date Type Department Care Team (Latest Contact Info) Description 07/04/2023 1:30 PM CDT Comprehensive Visit Department of Orthopedic Surgery in [address] [phone] Barry Baeza M.D. [address] [place] [phone] Pain Finger Left (Primary Dx) Discharge Disposition: [...] week 07/26/2022 How often do you attend [facility] or mandaen services? Never 07/26/2022 Do you belong to any clubs o r organizations such as adventist groups, unions, fraternal or athletic groups, or [...] Answer Date Recorded PHQ-2 Score 0 05/22/2023 [facility] of Occupat ional Health - [...] place to sleep or slept in a snf (including now)? No 07/26/2022 Depression Answer Date [...] degree you have received? Master's degree (e.g., MANINDER, MS, Kimberly, MEd, WINDOW CUTTER, GRUPO) 11/05/2019 Sex and Gender Information Value Date Recorded Sex Assigned at Not on file Gender Identity Not on file Sexual Orientation Not on file documented as of this encounter Consult Notes * Barry Baeza M.D. - 07/04/2023 1:30 PM CDT HISTORY OF PRESENT ILLNESS Idalia is an 88-year-old woman who had the onset of quite significant pain that seemed to be in her buttock and then down further into her leg. She experienced the pain around the hip region and then even down as far as her calf. It has started to improve to some extent, but she is concerned about the etiology as well as the continued care of this issue. The second issue is in regard to her left hand. She started experiencing quite severe difficulties with use of her left third digit after trying to move a very heavy pot, and now she really cannot flex the finger down or fully extend it. OBJECTIVE PHYSICAL EXAMINATION Musculoskeletal : Examination of her hip, range of motion of her hip is not particularly irritable.She has some mild tenderness overlying the trochanteric region, but range of motion does not seem to irritate it. She has good hip flexor and abductor strength, is relatively weak, but similar to the contralateral side. Examination of her hand, she is able to flex the other fingers down into her palm, but the third digit remains very minimally flexed at the PIP joint and lacks also approximately 15-20 degrees of extension. She is stable to varus and valgus at this joint, but there is certainly crepitus felt as this is tested and put through range of motion. DIAGNOSTICS X-rays of her hip and pelvis demonstrate mild degenerative changes to the left hip but more moderate degenerative changes to the right hip. In regard to her left hand, she is noted to have severe degenerative changes with subluxation at the PIP joint in this third digit. ASSESSMENT / PLAN Idalia is an 88-year-old woman who is dealing with lumbar stenosis-related problems that has exacerbated this pain down into her left leg. My suggestion is to work on a physical therapy program for lumbar stenosis. 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 She would like to proceed with this, and we will make plans to proceed with this surgical intervention in the near future, with a preop workup done prior to surgery. There appear to be no contraindications to this surgical intervention. documented in this encounter Plan of Treatment Upcoming Encounters Date Type Department Care Team (Latest Contact Info) Description 08/14/2023 3:00 PM CDT Comprehensive Visit Department of Ophthalmology in [address] [phone] Rahul Rivera Jr., M.D. [address] [phone] Discharge Disposition: Home or Self Care 09/25/2023 1:00 PM CDT Appointment Department of Laboratory Medicine in [address] [phone] Angelika Wilkinson M.D. [address] [place] [phone] 09/26/2023 2:20 PM CDT Office Visit Department of Oncology in [address] [phone] Angelika Wilkinson M.D. [address] [place] [phone] Scheduled Procedures Name Priority Associated Diagnoses Date/Ti me ARTHROPLASTY PROXIMAL INTERPHALANGEAL JOINT Pain Finger Left Scheduled Referrals Name Type Priority Associated Diagnoses Order Schedule Orthopedic Surgery Post Op (clinic) Outpatient Referral Routine Expected: 08/08/2023, Expires: 07/10/2024 Pre Operative Evaluation MICHAEL nurse consult (clinic) Outpatient Referral Routine Pain Finger Left 1 Occurrences starting 07/04/2023 until 10/02/2024 Primary Care - MICHAEL consult (clinic) Outpatient Referral Routine Pain Finger Left Expected: 07/04/2023, Expires: 10/02/2024 documented as of this encounter Results * DX Fingers Left 2+ Views [...] Otherwise,scattered polyarticular degenerative change. Bone demineralization. Barry [facility] NEIL GING PROCEDURES documented in this encounter Visit Diagnoses Diagnosis Pain Finger Left- Primary Pain Finger Left documented in this encounter Additional Health Concerns Assessment Noted Time PHQ-9 Depression Total Score: 0 04/28/19 21 2:20 PM APPLICATION DEVELOPMENT SPECIALIST documented as of this encounter Care Teams Tire Repairman Relationship Specialty Start Date End Date Wong Marrero M.D., Ph.D. [address] [place] [phone] PCP - General Family Medicine 1/7/20 documented as of this encounter
--- OUTSIDE RECORDS SUMMARY | 2023-08-09 07:24 | XMS_ITS | Encounter Summary ---
Author Name Unknown Organization [facility] Address [address] [place] [address] Care Team Providers Care Maturity Checker Name Role Phone Wong Marrero M.D., Ph.D. Primary Care Provider Reason for Visit * Reason Onset Date Comments Surgical Listing 07/04/2023 Encounter Details Date Type Department Care Team (Latest Contact Info) Description 07/04/2023 Clinical Communication Department of Orthopedic Surgery in [address] [phone] Barry Baeza M.D. [address] [place] [phone] Surgical Listing Social History Tobacco Use Types Packs/Day Years [...] How often do you attend chur or alevism services? Never 07/26/2022 Do you belong to any clubs o r organizations such as confucianism groups, unions, fraternal or athletic groups, or [...] Answer Date Recorded PHQ-2 Score 0 05/22/2023 [facility] of Occupat ional Health - Occupational Stress [...] place to sleep or slept in a fci (including now)? No 07/26/2022 Depression Answer Date [...] Master's degree (e.g., MA, MS, Kimberly, MEd, AUTOMOTIVE FLEET SUPERVISOR, GRUPO) 11/05/2019 Sex and Gender Information Value Date Recorded Sex Assigned at Not on file Gender Identity Not on file Sexual Orientation Not on file documented as of this encounter Miscellaneous Notes * Telephone Encounter - Elvie Patiño R.N. - 07/11/2023 1:10 PM CDT Patient contacted and she did cancel her pre-op appointments and she thought this canceled her surgery. I did confirm she would like to cancel her surgery. She plans to reschedule when she has familyaround to support her. She also plans to schedule another appointment with orthopedics prior to answer her questions about recovery and restrictions following surgery at her convenience. She is awarewe are typically booking surgery about 2-3 months out for her planning purposes. * Telephone Encounter - Kamla Singleton R.N. - 07/04/2023 1:49 PM CDT Scheduled left 3rd digit PIP replacement on July 24 [address] performed [address] Dr[address] Baeza in [place]. BMI Readings from Last 1 Encounters: 05/22/23 22.69 kg/m?? If BMI 55-60, contact Anesthesia as needs to schedule visit for evaluation. If BMI greater than 60,consult with provider. documented in this encounter Plan of Treatment Upcoming Encounters Date Type Department Care Team (Latest Contact Info) Description 08/14/2023 3:00 PM CDT Comprehensive Visit Department of Ophthalmology in [address] [phone] Rahul Rivera Jr., M.D. [address] [phone] Discharge Disposition: Home or Self Care 09/25/2023 1:00 PM CDT Appointment Department of Laboratory Medicine in [address] [phone] Angelika Wilkinson M.D. [address] [place] [phone] 09/26/2023 2:20 PM CDT Office Visit Department of Oncology in [address] [phone] Angelika Wilkinson M.D. [address] [place] [phone] Scheduled Procedures Name Priority Associated Diagnoses Date/Ti me ARTHROPLASTY PROXIMAL INTERPHALANGEAL JOINT Pain Finger Left documented as of this encounter Visit Diagnoses Not on filedocumented in this encounter Additional Health Concerns Assessment Noted Time PHQ-9 Depression Total Score: 0 04/28/19 21 2:20 PM REGISTERED RADIOLOGIC TECHNOLOGIST documented as of this encounter Care Teams Maturity Checker Relationship Specialty Start Date End Date Wong Marrero M.D., Ph.D. [address] [place] [phone] PCP - General Family Medicine 04/09/19 documented as of this encounter
--- OUTSIDE RECORDS SUMMARY | 2023-08-09 07:24 | XMS_ITS | Encounter Summary ---
Author Name Unknown Organization [facility] Address [address] [place] [address] Care Team Providers Care Building Serviceman Name Role Phone Wong Marrero M.D., Ph.D. Primary Care Provider Reason for Referral * Outpatient (Routine) - Closed Specialty Diagnoses / Procedures Referred By Akanksha alvares Referred To Contact Diagnoses Pain Finger Left Procedures DX Fingers Left 2+ Views Barry Baeza M.D. [address] [place] [phone] Formerly [facility] Referral ID Status Reason Start Date Expiration Date Visits Re quested Visits Authorized [id number] Closed 07/04/2023 2024 1 1 Reason for Visit * Outpatient (Routine) - Closed Specialty Diagnoses / Procedures Referred By Akanksha alvares Referred To Contact Diagnoses Pain Finger Left Procedures DX Fingers Left 2+ Views Barry Baeza M.D. [address] [place] [phone] Formerly [facility] Referral ID Status Reason Start Date Expiration Date Visits Re quested Visits Authorized [id number] Closed 07/04/2023 2024 1 1 Encounter Details Date Type Department Care Team (Latest Contact Info) Description 07/04/2023 1:13 PM CDT - 07/04/2023 11:59 PM CDT Hospital Encounter Department of Radiology in [address] [phone] Barry Baeza M.D. [address] [facility] [place] [phone] Pain Finger Left Discharge Disposition: Home or Self Care Social [...] often do you attend chur ch or rastafari services? Never 07/26/2022 Do you belong to any clubs o r organizations such as congregational groups, unions, fraternal or athletic groups, or [...] Answer Date Recorded PHQ-2 Score 0 05/22/2023 [facility] - Occupational Stress [...] place to sleep or slept in a jail (including now)? No 07/26/2022 Depression Answer Date [...] have received? Master's degree (e.g., MA, MS, Kimberyl, MEd, ADJUNCT SPANISH INSTRUCTOR, [employer]) 11/05/2019 Sex and Gender Information Value Date Recorded Sex Assigned at Not on file Gender Identity Not on file Sexual Orientation Not on file documented as of this encounter Medications at Time of Discharge [...] 3 04/12/2023 04/11/2024 furosemide (LASIX) 20 mg tabletIndications:Atrial Fibrillation Unspecified (HCC) Take 2 tablets (40 mg total) by mouth daily. Patient takes one dose of 40mg/day 180 tablet 3 07/26/2022 ketoconazole (NIZORAL) 2 % cream Apply to rash under breasts twice daily for 3-4 weeks 30 g 1 09/01/2022 losartan (COZAAR) 100 mg tablet Take 100 mg by mouth daily. 08/19/2017 metoprolol succinate (TOPROL-XL) 50 mg 24 hr tablet Take 50 mg by mouth daily. Do not crush or chew. Patient taking two 50 mg tablets q noon. multivitamin tablet Take 1 tablet by mouth. 10/06/2021 tretinoin (RETIN-A) 0.025 % cream as needed. 09/24/2019 documented as of this encounter Plan of Treatment Upcoming Encounters Date Type Department Care Team (Latest Contact Info) Description 08/14/2023 3:00 PM CDT Comprehensive Visit Department of Ophthalmology in [address] [phone] Rahul Rivera Jr., M.D. [address], [place] [phone] Discharge Disposition: Home or Self Care 09/25/2023 1:00 PM CDT Appointment Department of Laboratory Medicine in [address] [phone] Angelika Wilkinson M.D. [address] [place] [phone] 09/26/2023 2:20 PM CDT Office Visit Department of Oncology in [address] [phone] Angelika Wilkinson M.D. [address] [place] [phone] Scheduled Procedures Name Priority Associated Diagnoses Date/Ti me ARTHROPLASTY PROXIMAL INTERPHALANGEAL JOINT Pain Finger Left documented as of this encounter Procedures Procedure Name Priority Date/Time Associated Diagnosis Comments DX FINGERS LEFT 2+ VIEWS RAD - Routine (most inpatients and all outpatients) 07/04/2023 1:21 PM CDT Pain Finger Left documented in this encounter Results * DX Fingers Left [...] degenerative change. Bone demineralization. Barry Baeza M.D. [facility] DI[facility] NEIL GING PROCEDURES documented in this encounter Visit Diagnoses Diagnosis Pain Finger Left documented in this encounter Additional Health Concerns Assessment Noted Time PHQ-9 Depression Total Score: 0 04/28/19 21 2:20 PM REAL ESTATE DEVELOPMENT MANAGER documented as of this encounter Care Teams Building Serviceman Relationship Specialty Start Date End Date Wong Marrero M.D., Ph.D. [address] [place] [phone] PCP - General Family Medicine 04/09/19 documented as of this encounter
--- OUTSIDE RECORDS SUMMARY | 2023-08-09 07:24 | XMS_ITS | Encounter Summary ---
Author Name Unknown Organization [facility] Address [address] [place] [address] Care Team Providers Care Manager Physical Name Role Phone Wong Marrero M.D., Ph.D. Primary Care Provider Reason for Visit * Reason Comments worsening left leg pain Seen in ED on 05/10/23 with worsening hip pain. Xray obtained. Diag unclear, sciatica vs arthritis. Was told to follow up with [facility] (07/03) Pain started right after she was doing stretching exercises and squats. That's the only catalyst she can think of. Pain in ED 01/10. Currently, stairs are still painful. Can't pinpoint if pain is behind leg or front of leg. No pain w/sitting. Told not to sit too much. The more she sits, harder to get up from chair. Improving since ED vz. * Appointment Request (Routine) - Closed Specialty Diagnoses / Procedures Referred By Akanksha alvares Referred To Contact Family Medicine Referral ID Status Reason Start Date Expiration Date Visits Re quested Visits Authorized [id number] Closed 05/10/2023 05/09/2024 1 1 Encounter Details Date Type Department Care Team (Late st Contact Info) Description 05/22/2023 4:00 PM MACHINE STAMPER Office Visit Department of Family Medicine, [facility], in [address] [phone] Wong Marrero M.D., Ph.D. [address] [place] [phone] Pain Hip Left (Primary Dx) Discharge Disposition: [...] How often do you attend chur or sabianist services? Never 07/26/2022 Do you belong to any clubs o r organizations such as mandaeism groups, unions, fraternal or athletic groups, or [...] Answer Date Recorded PHQ-2 Score 0 05/22/2023 [facility] Stress Questionnaire Answer Date Recorded [...] Master's degree (e.g., MA, MS, Kimberly, MEd, TUGBOAT ENGINEER, [employer]) 11/05/2019 Sex and Gender Information Value Date Recorded Sex Assigned at Not on file Gender Identity Not on file Sexual Orientation Not on file documented as of this encounter Last Filed Vital Signs Vital Sign Reading Time Taken Comments Blood Pressure 131/84 05/22/2023 3:21 PM MACHINE STAMPER Pulse 96 05/22/2023 3:21 PM MACHINE STAMPER Temperature - - Respiratory Rate - - Oxygen Saturation - - Inhaled Oxygen Concentration - - Weight 60 kg (132 lb 4.4 oz) 05/22/2023 3:21 PM MACHINE STAMPER Height - - Body Mass Index 22.69 07/26/2022 1:34 PM CDT documented in this encounter Progress Notes * Wong Marrero M.D., Ph.D. - 05/22/2023 4:00 PM CST SUBJECTIVE CHIEF COMPLAINT / REASON FOR VISIT Idalia Hoskins is a 87 y.o. female who presents for evaluation of worsening left leg pain (Seen in ED on 05/10/23 with worsening hip pain. Xray obtained. Diag unclear, sciatica vs arthritis. Was told to follow up with [facility] (07/03) Pain started right after she was doing stretchingexercises and squats. That's the only catalyst she can think of. Pain in ED 01/10. Currently, stairs are still painful. Can't pinpoint if pain is behind leg or front of leg. No pain w/sitting. Told not to sit too much. The more she sits, harder to get up from chair. Improving since ED vz. ). HISTORY OF PRESENT ILLNESS Acute onset of left groin/hip pain on 05/10/23 after exercising. She was seen in ER, notes reviewed. 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 Since then, she has improved pain since then, nearly resolved, but has had difficulty going up stairs fully with left hip flexion. Otherwise has minimal pain. The following portions of the patient's history were reviewed and updated as appropriate: allergies, current medications, family history, medical history, social history, surgical history, and problem list. REVIEW OF SYSTEMS Musculoskeletal: Positive for pain or stiffness in the joints. OBJECTIVE PHYSICAL EXAMINATION Vitals and nursing note reviewed. Constitutional General: She is not in acute distress. Appearance: She is well-developed. HENT Head: Normocephalic and atraumatic. Musculoskeletal Comments: Left hip with full range of motion with pain with active hip flexion. Skin General: Skin is warm and dry. Findings: No rash. Neurological Mental Status: She is alert and oriented to person, place, and time. ASSESSMENT / PLAN #1 Pain Hip Left Recommend application of ice QID x 15 minutes, over the counter symptomatic treatment, topical salicylic acid preparation (such as Geoff Jackson or Icy Hot) to be applied QID. - PT Evaluate and treat; Future; Expected date: 05/22/2023 INE STAMPER documented in this encounter Plan of Treatment Upcoming Encounters Date Type Department Care Team (Latest Contact Info) Description 08/14/2023 3:00 PM CDT Comprehensive Visit Department of Ophthalmology in [address] [phone] Rahul Rivera Jr., M.D. [address] [phone] Discharge Disposition: Home or Self Care 09/25/2023 1:00 PM CDT Appointment Department of Laboratory Medicine in [address] [phone] Angelika Wilkinson M.D. [address] [place] [phone] 09/26/2023 2:20 PM CDT Office Visit Department of Oncology in [place], [place] [address] [place] [phone] Angelika Wilkinson M.D. [address] [place] [phone] Scheduled Procedures Name Priority Associated Diagnoses Date/Ti me ARTHROPLASTY PROXIMAL INTERPHALANGEAL JOINT Pain Finger Left documented as of this encounter Visit Diagnoses Diagnosis Pain Hip Left- Primary documented in this encounter Additional Health Concerns Assessment Noted Time PHQ-9 Depression Total Score: 0 04/28/19 21 2:20 PM MACHINE STAMPER documented as of this encounter Care Teams Manager Physical Relationship Specialty Start Date End Date Wong Marrero M.D., Ph.D. [address] [place] [phone] PCP - General Family Medicine 04/09/19 documented as of this encounter
== END 2023-08-07 09:15 | disposition home or self-care (01) ==
LOC: NFLDREF 08-09 07:21
PROVIDERS: PCP Internal Medicine; Referring Provider Internal Medicine; Visit Provider Internal Medicine
DX: Z13.220 Encounter for screening for lipoid disorders (principal); Z13.228 Encounter for screening for other metabolic disorders
CPT/HCPCS: 80053; 80061

== ENCOUNTER 2024-08-28 13:29 | Outpatient (CLI) | payer MEDICARE, SELFPAY | END 2024-08-28 13:30 | disposition home or self-care (01) | PROVIDERS: PCP Internal Medicine; Visit Provider Internal Medicine | DX: I10 Essential (primary) hypertension (principal) | CPT/HCPCS: 80053; 80061 ==